=== PATIENT | male | born 1980 | race Two or more races ===

== ENCOUNTER 2020-08-17 02:52 | Emergency (ER) | payer SELFPAY ==
[~2020-08-17] VITALS: Ht 180.3 cm; Wt 94.0 kg
[2020-08-17] MEDS ORDERED: ACETAMINOPHEN 325MG TABLET PO ONE (04:45)
[2020-08-17] MEDS ORDERED: MORPHINE SULFATE 10 MG/ML CPJ IM ONE (06:00)
[2020-08-17 06:46] VITALS: BP 121/70
== END 2020-08-17 06:58 | disposition home or self-care (01) ==
LOC: ER 02:52
DX: S82.492A Other fracture of shaft of left fibula, initial encounter for closed fracture (principal); W18.39XA Other fall on same level, initial encounter; Y93.89 Activity, other specified; Y92.89 Other specified places as the place of occurrence of the external cause; Y99.8 Other external cause status
CPT/HCPCS: 29505; 73590; 93005; 96372; 99283; J2270